=== PATIENT | female | born 1995 | race Caucasian/White ===

== ENCOUNTER 2017-09-18 10:58 | Emergency (ER) | payer BC ==
[~2017-09-18] VITALS: Ht 162.6 cm; Wt 73.0 kg
[2017-09-18 11:16] VITALS: Ht 162.6 cm; Wt 73.0 kg
[2017-09-18] MEDS ORDERED: BCPILLS PO (11:57)
[2017-09-18] MEDS ORDERED: SODIUM CHLORIDE 0.9% 1000ML 1,000 ML IV STA (12:33)
--- NOTE | 2017-09-18 12:33 | EMERGENCY ROOM VISIT NOTE ---
History Report prepared by Tha: Chico Horne Under the Supervision of: Dr. Roselyn Shaikh D.O. First contact with patient: 12:04 Chief Complaint: SYNCOPE (NEAR SYNCOPE) Stated Complaint: FAINTING, LIGHT HEADED, DIARRHEA Nursing Triage Summary: upset stomach, diarrhea for three days [employer] student, lives at [facility], eats at the [employer] didn't eat breakfast this am, passed out in the shower, denies hitting head, landed on arm. only c/o is right arm pain. History of Present Illness The patient is a 22 year old female who presents to the Emergency Room with complaints of a syncopal episode that occurred around 6 hours ago. She says that a couple weeks ago, she had 12 hours of bad diarrhea, and then it went away , but then it "fluctuated" and has came back once in a while since then. She states that she was at her boyfriend's house yesterday, and she started having bad diarrhea again around 1600. The patient notes that she has had between 10 to 20 episodes of diarrhea since yesterday. She says that she was in the shower around 6 hours ago in her dorm, and the patient notes that it was a hot shower. She says that she felt herself getting faint, and bent over toward her legs, and went down to the floor. The patient states that she then tried to get back up and she got all the way up, but then went down again. She says that she woke up on her right side, and the water was cold by the time she woke up. She says that she knew where she was when she woke up, but she has been tired. The patient notes that her left arm is a bit sore from the fall, but she denies any headaches, blurry vision, double vision, nausea, vomiting, fevers, chills, dizziness, or lightheadedness. The patient notes that she has not had abdominal pain since the first time she had bad diarrhea a few weeks ago. She denies any hematochezia. The patient says that she has been trying to stay hydrated. She notes that she only blacked out once before this, and that was when she saw her blood during a wisdom teeth extraction. She notes no history of intestinal problems or family history of that. Source of History: patient Onset: 6 hours ago Position: other (global) Quality: other (syncope) Timing: other (episode) Associated Symptoms: + LOC, + diarrhea, + fatigue, No fevers, No chills, No headache, No nausea, No vomiting, No hematochezia Note: Denies blurry vision, double vision, dizziness (after syncope), lightheadedness (after syncope). Review of Systems See HPI for pertinent positives & negatives. A total of 10 systems reviewed and were otherwise negative. Past Medical & Surgical Medical Problems: (1) No chronic diseases present Family History Heart disease Social History Smoking Status: Never Smoker Smokeless Tobacco Use: No Marital Status: in relationship Housing Status: lives with roommate Occupation Status: [employer] student Current/Historical Medications Scheduled Control Pills ( Control Pills), 1 TAB PO DAILY Allergies Coded Allergies: Penicillins (Unverified Allergy, Intermediate, HIVES, 09/18/17) Physical Exam Vital Signs Date Time Temp Pulse Resp B/P (MAP) Pulse Ox O2 Delivery O2 Flow Rate FiO2 09/18/17 16:17 36.7 84 16 111/74 98 09/18/17 13:18 91 18 09/18/17 13:13 98 18 09/18/17 13:08 96 18 09/18/17 13:03 100 19 09/18/17 12:58 79 19 09/18/17 12:53 87 20 09/18/17 12:48 85 18 09/18/17 12:43 86 28 09/18/17 12:38 82 20 09/18/17 12:33 91 16 09/18/17 12:28 96 24 09/18/17 12:23 97 20 09/18/17 12:18 84 19 09/18/17 12:13 88 20 09/18/17 12:09 91 09/18/17 12:08 94 22 09/18/17 12:03 82 18 09/18/17 11:58 90 12 09/18/17 11:53 94 20 09/18/17 11:48 121 19 09/18/17 11:39 111/74 09/18/17 11:37 76 18 139/75 98 Room Air 132/80 111/74 09/18/17 11:16 36.7 113 18 145/96 98 Room Air Physical Exam GENERAL: alert, well appearing, well nourished, no distress, non-toxic EYE EXAM: normal conjunctiva, PERRL and EOM's grossly intact OROPHARYNX: no exudate, no erythema, lips, buccal mucosa, and tongue normal and mucous membranes are moist NECK: supple, no nuchal rigidity, no adenopathy, non-tender LUNGS: Clear to auscultation. Normal chest wall mechanics HEART: no murmurs, S1 normal and S2 normal ABDOMEN: abdomen soft, non-tender, normo-active bowel sounds, no masses, no rebound or guarding. BACK: Back is symmetrical on inspection and there is no deformity, no midline tenderness, no CVA tenderness. SKIN: no rashes and no bruising UPPER EXTREMITIES: upper extremities are grossly normal. LOWER EXTREMITIES: No pitting edema. NEURO EXAM: Normal sensorium, cranial nerves II-XII grossly intact, normal speech, no gross weakness of arms, no gross weakness of legs. No drift. Finger to nose intact. Gross sensation intact. Medical Decision & Procedures ER Provider Diagnostic Interpretation: X-ray results have been interpreted by the radiologist and reviewed by me. CHEST ONE VIEW PORTABLE HISTORY: syncope COMPARISON: None. FINDINGS: The lungs are clear. Cardiac silhouette is normal in size. No pleural effusions. No pneumothorax. IMPRESSION: No acute process. Electronically signed by: Casimiro Lovett M.D. 09/18/2017 1:21 PM Dictated Date/Time: 09/18/2017 1:21 PM Laboratory Results 09/18/17 12:20 Red Blood Count 5.05, Mean Corpuscular Volume 85.9, Mean Corpuscular Hemoglobin 29.7, Mean Corpuscular Hemoglobin Concent 34.6, Mean Platelet Volume 9.8, Neutrophils (%) (Auto) 72.3, Lymphocytes (%) (Auto) 18.1, Monocytes (%) (Auto) 8.4, Eosinophils (%) (Auto) 0.5, Basophils (%) (Auto) 0.2, Neutrophils # (Auto) 3.96, Lymphocytes # (Auto) 0.99, Monocytes # (Auto) 0.46, Eosinophils # (Auto) 0.03, Basophils # (Auto) 0.01 09/18/17 12:20 Test 09/18/17 12:20 White Blood Count 5.48 K/uL (4.8-10.8) Red Blood Count 5.05 M/uL (4.2-5.4) Hemoglobin 15.0 g/dL (12.0-16.0) Hematocrit 43.4 % (37-47) Mean Corpuscular Volume 85.9 fL (80-100) Mean Corpuscular Hemoglobin 29.7 pg (25-34) Mean Corpuscular Hemoglobin Concent 34.6 g/dl (32-36) Platelet Count 274 K/uL (130-400) Mean Platelet Volume 9.8 fL (7.4-10.4) Neutrophils (%) (Auto) 72.3 % Lymphocytes (%) (Auto) 18.1 % Monocytes (%) (Auto) 8.4 % Eosinophils (%) (Auto) 0.5 % Basophils (%) (Auto) 0.2 % Neutrophils # (Auto) 3.96 K/uL (1.4-6.5) Lymphocytes # (Auto) 0.99 K/uL (1.2-3.4) Monocytes # (Auto) 0.46 K/uL (0.11-0.59) Eosinophils # (Auto) 0.03 K/uL (0-0.5) Basophils # (Auto) 0.01 K/uL (0-0.2) RDW Standard Deviation 39.5 fL (36.4-46.3) RDW Coefficient of Variation 12.6 % (11.5-14.5) Immature Granulocyte % (Auto) 0.5 % Immature Granulocyte # (Auto) 0.03 K/uL (0.00-0.02) Anion Gap 9.0 mmol/L (3-11) Est Creatinine Clear Calc Drug Dose 90.8 ml/min Estimated GFR () 98.0 Estimated GFR (Non- 84.5 BUN/Creatinine Ratio 13.6 (10-20) Calcium Level 8.6 mg/dl (8.5-10.1) Magnesium Level 2.2 mg/dl (1.8-2.4) Total Bilirubin 1.4 mg/dl (0.2-1) Aspartate Amino Transf (AST/SGOT) 36 U/L (15-37) Alanine Aminotransferase (ALT/SGPT) 70 U/L (12-78) Alkaline Phosphatase 55 U/L (45-117) Troponin I < 0.015 ng/ml (0-0.045) Total Protein 7.8 gm/dl (6.4-8.2) Albumin 3.8 gm/dl (3.4-5.0) Globulin 4.0 gm/dl (2.5-4.0) Albumin/Globulin Ratio 1.0 (0.9-2) Thyroid Stimulating Hormone (TSH) 1.750 uIu/ml (0.300-4.500) Human Chorionic Gonadotropin, Qual NEG (NEG) Laboratory results per my review. Medications Administered Medications (Trade) Dose Ordered Sig/Amy Route Start Time Stop Time Status Last Admin Dose Admin Sodium Chloride 1,000 ml @ 999 mls/hr Q1H1M STAT IV 09/18/17 12:33 09/18/17 13:33 DC 09/18/17 13:54 999 MLS/HR ECG Per My Interpretation Indication: syncope Rate (beats per minute): 90 Rhythm: sinus rhythm Findings: no acute ischemic change, no ectopy, other (normal axis, normal intervals, no evidence of Brugada) ED Course 1221: The patient was evaluated in room B10. A complete history and physical exam was performed. 1233: NSS 1000 ml @ 999 mls/hr IV. 1340: Upon reevaluation, the patient was going to the bathroom. 1350: Upon reevaluation, the patient is still finishing the medications. She says that she is dizzy when she first stands up. She was able to give us a stool sample. 1452: I reevaluated the patient and she still is not through the fluids. 1541: Upon reevaluation, the patient is feeling better and her fluids are done. I discussed the findings and the treatment plan with the patient. She verbalizes agreement and understanding. She will be discharged home. Medical Decision Differential diagnosis includes etiologies such as vasovagal event, infection, hypoglycemia, electrolyte abnormalities, cardiac sources, intracerebral event, toxicologic, neurologic, as well as others were entertained. Patient appeared dehydrated here and improved following IV fluids. Patient still felt mildly ill and had 2 episodes of diarrhea while here. Patient with no risk factors for C. difficile or other acute infectious diarrhea. No recent travel, patient not immunocompromised. Likely episodes in the shower today were secondary to orthostatic hypotension this patient had been dehydrated from diarrhea overnight. Patient with no headache and a normal nonfocal neuro exam bedside, I do not suspect occult intracranial hemorrhage. Doubt CVA or cerebellar infarct/bleed. Patient's labs and imaging otherwise reassuring. I do not suspect occult traumatic injury. No dysrhythmias noted on telemetry, I do not suspect cardiac etiology. Discussed with patient adequate hydration, follow-up with PCP. Discussed that if diarrhea persists she may need additional GI evaluation. Vital signs are stable throughout. Patient well- appearing at time of discharge, tolerating p.o., and reported feeling improved. Discussed symptoms to watch and return for, she verbalized understanding and was agreeable to plan. Medication Reconcilliation Current Medication List: was personally reviewed by me Blood Pressure Screening Patient's blood pressure: Elevated blood pressure Blood pressure disposition: Elevated BP felt to be situational Impression Primary Impression: Syncope Additional Impression: Diarrhea Scribe Attestation The scribe's documentation has been prepared under my direction and personally reviewed by me in its entirety. I confirm that the note above accurately reflects all work, treatment, procedures, and medical decision making performed by me. Departure Information Dispostion Home / Self-Care Referrals No Doctor, Assigned (PCP) Patient Instructions [facility] Additional Instructions Please sip clear liquids at frequent intervals to stay well-hydrated. You may eat as tolerated. Please consider follow-up with your family doctor if your diarrhea persists. If you have persistent diarrhea, please consider following up with a GI specialist also. If you develop worsening diarrhea, noticed black or bloody stools, develop vomiting, fevers or chills, have a recurrent episode of passing out, are unable to eat, develop chest pain or trouble breathing, dizziness or lightheadedness, vision changes, numbness or tingling, you have any other new concerns, please return the emergency room. Problem Qualifiers Primary Impression: Syncope Syncope type: unspecified Qualified Codes: R55 - Syncope and collapse Additional Impression: Diarrhea Diarrhea type: unspecified type Qualified Codes: R19.7 - Diarrhea, unspecified
[2017-09-18 12:43] LABS: BASO % 0.2 %; BASO ABS # 0.01 K/uL (0-0.2); EOS % 0.5 %; EOS ABS # 0.03 K/uL (0-0.5); HEMATOCRIT 43.4 % (37-47); IG# 0.03 K/uL (0.00-0.02); LYMPH % 18.1 %; LYMPH ABS # 0.99 K/uL (1.2-3.4); MEAN CELL VOLUME 85.9 fL (80-100); MEAN CORPUSCULAR HEMOGLOBIN 29.7 pg (25-34); MEAN CORPUSCULAR HGB CONC 34.6 g/dl (32-36); MEAN PLATELET VOLUME 9.8 fL (7.4-10.4); MONO % 8.4 %; MONO ABS # 0.46 K/uL (0.11-0.59); NEUT % 72.3 %; NEUT ABS # 3.96 K/uL (1.4-6.5); PLATELET COUNT 274 K/uL (130-400); RED CELL DISTRIBUTION WIDTH CV 12.6 % (11.5-14.5); RED CELL DISTRIBUTION WIDTH SD 39.5 fL (36.4-46.3); WHITE BLOOD COUNT 5.48 K/uL (4.8-10.8)
[2017-09-18 12:50] LABS: ALBUMIN 3.8 gm/dl (3.4-5.0); ALT/SGPT 70 U/L (12-78); AST/SGOT 36 U/L (15-37); BLOOD UREA NITROGEN 13 mg/dl (7-18); CALCIUM 8.6 mg/dl (8.5-10.1); CARBON DIOXIDE 22 mmol/L (21-32); CREATININE 0.96 mg/dl (0.60-1.20); GLUCOSE 77 mg/dl (70-99); POTASSIUM 3.7 mmol/L (3.5-5.1); SODIUM 137 mmol/L (136-145)
[2017-09-18 13:01] LABS: ALKALINE PHOSPHATASE 55 U/L (45-117); TOTAL PROTEIN 7.8 gm/dl (6.4-8.2)
--- NOTE | 2017-09-18 13:23 | DIAGNOSTIC IMAGING REPORT ---
CHEST ONE VIEW PORTABLE HISTORY: syncope COMPARISON: None. FINDINGS: The lungs are clear. Cardiac silhouette is normal in size. No pleural effusions. No pneumothorax. IMPRESSION: No acute process. Electronically signed by: Casimiro Lovett M.D. 09/18/2017 1:21 PM Dictated Date/Time: 09/18/2017 1:21 PM
[2017-09-18 16:17] VITALS: BP 111/74; PULSE 84; TEMP 36.7; O2SAT 98
== END 2017-09-18 16:18 | disposition home or self-care (01) ==
LOC: C.EDB 11:02
DX: R55 Syncope and collapse (principal); R19.7 Diarrhea, unspecified